=== PATIENT | female | born 1965 | race Caucasian/White ===

== ENCOUNTER 2017-09-22 15:12 | Inpatient (IN) | payer OTHER, MEDICAID ==
[~2017-09-22] VITALS: Ht 154.9 cm; Wt 85.3 kg
[2017-09-22 16:41] LABS: BASOPHIL % 0.4 % (0-2); PLATELET COUNT 331 x10^3mcL (130-400); RED CELL DISTRIBUTION WIDTH 14.2 % (11.5-14.5)
[2017-09-22 16:57] LABS: CALCIUM 8.9 mg/dL (8.5-10.1); CARBON DIOXIDE 22.5 mmol/L (21-32); CHLORIDE SERUM 100 mmol/L (98-107); CREATININE SERUM 0.9 mg/dL (0.6-1.0); GFR1 > 60 mL/min; GLUCOSE SERUM 344 mg/dL (74-106); POTASSIUM SERUM 4.8 mmol/L (3.5-5.1); SODIUM SERUM 136 mmol/L (136-145)
[2017-09-22 17:01] LABS: ALKALINE PHOSPHATASE 140 U/L (46-116); ALT/SGPT 23 U/L (14-59); AST/SGOT 27 U/L (15-37); BILIRUBIN TOTAL 0.29 mg/dL (0.20-1.00); TOTAL PROTEIN, SERUM 7.8 g/dL (6.4-8.2); URIC ACID 6.4 mg/dL (2.6-6.0)
[2017-09-22 18:10] LABS: microscopic required? YES; urine erythrocyte NEGATIVE (NEGATIVE)
[2017-09-22] MEDS ORDERED: NORCO1 TA2 PO (20:27)
[2017-09-22] MEDS ORDERED: FOSAMAX70 M1 PO (20:27)
[2017-09-22] MEDS ORDERED: LIPI10 PO (20:28)
[2017-09-22] MEDS ORDERED: AMITRIPTYLINE150 MG PO (20:28)
[2017-09-22] MEDS ORDERED: NOR10 PO (20:28)
[2017-09-22] MEDS ORDERED: BACLOFEN10 MG PO (20:28)
[2017-09-22] MEDS ORDERED: CEL100 PO (20:29)
[2017-09-22] MEDS ORDERED: BENAZEPRIL HYDR20 M1 PO (20:29)
[2017-09-22 20:36] LABS: AMPHETAMINE QUAL UR NONE DETECTED (NEG <=1000)
[2017-09-22 20:43] LABS: PHOSPHOROUS 4.7 mg/dL (2.5-4.9)
[2017-09-22 20:44] LABS: CHOLESTEROL/HDL RATIO 6.6
[2017-09-22 20:50] LABS: T3 TOTAL 0.81 ng/mL
[2017-09-22 20:55] LABS: FREE T4 0.83 ng/dL (0.76-1.46); FREE THYROXINE INDEX 2.3 ug/dL (1.4-4.5); T4(THYROXINE) 7.4 ug/dL (4.7-13.3)
[2017-09-22 21:14] VITALS: BP 138/65
[2017-09-22 21:24] VITALS: Ht 154.9 cm; Wt 85.3 kg
[2017-09-23 05:21] VITALS: BP 134/83
[2017-09-23] MEDS ORDERED: GLUCOTROL10 MG PO (06:25)
[2017-09-23 06:26] LABS: CALCIUM 8.3 mg/dL (8.5-10.1); CARBON DIOXIDE 24.4 mmol/L (21-32); CHLORIDE SERUM 106 mmol/L (98-107); CREATININE SERUM 0.7 mg/dL (0.6-1.0); GFR1 > 60 mL/min; GLUCOSE SERUM 366 mg/dL (74-106); POTASSIUM SERUM 4.8 mmol/L (3.5-5.1); SODIUM SERUM 134 mmol/L (136-145)
[2017-09-23] MEDS ORDERED: METFORMIN850 M1 PO (06:27)
[2017-09-23] MEDS ORDERED: PREDNISONE20 MG PO (06:29)
[2017-09-23 07:40] LABS: CHOLESTEROL/HDL RATIO 6.5
[2017-09-23 09:32] VITALS: BP 122/67
[2017-09-23 10:43] LABS: BASOPHIL % 0.1 % (0-2); PLATELET COUNT 273 x10^3mcL (130-400); RED CELL DISTRIBUTION WIDTH 14.4 % (11.5-14.5)
[2017-09-23 12:44] VITALS: BP 107/63
[2017-09-23 17:50] VITALS: BP 142/64
[2017-09-23 20:35] VITALS: BP 137/47
[2017-09-24 03:24] VITALS: BP 116/63
[2017-09-24 05:59] VITALS: BP 120/57
[2017-09-24 06:46] LABS: BASOPHIL % 0.6 % (0-2); PLATELET COUNT 235 x10^3mcL (130-400); RED CELL DISTRIBUTION WIDTH 13.9 % (11.5-14.5)
[2017-09-24 06:53] LABS: CARBON DIOXIDE 22.5 mmol/L (21-32); CHLORIDE SERUM 109 mmol/L (98-107); CREATININE SERUM 0.5 mg/dL (0.6-1.0); GFR1 > 60 mL/min; GLUCOSE SERUM 164 mg/dL (74-106); MAGNESIUM 1.8 mg/dL (1.8-2.4); PHOSPHOROUS 3.1 mg/dL (2.5-4.9); POTASSIUM SERUM 4.2 mmol/L (3.5-5.1); SODIUM SERUM 141 mmol/L (136-145); URIC ACID 5.5 mg/dL (2.6-6.0)
[2017-09-24 10:51] VITALS: BP 146/62
[2017-09-24 14:18] VITALS: BP 140/60
[2017-09-24 18:46] VITALS: BP 118/61
[2017-09-24 21:58] VITALS: BP 159/120
[2017-09-25 05:26] VITALS: BP 155/71
[2017-09-25 06:35] LABS: CALCIUM 8.3 mg/dL (8.5-10.1); CARBON DIOXIDE 25.7 mmol/L (21-32); CHLORIDE SERUM 103 mmol/L (98-107); CREATININE SERUM 0.6 mg/dL (0.6-1.0); GFR1 > 60 mL/min; GLUCOSE SERUM 200 mg/dL (74-106); MAGNESIUM 1.6 mg/dL (1.8-2.4); PHOSPHOROUS 3.3 mg/dL (2.5-4.9); POTASSIUM SERUM 3.8 mmol/L (3.5-5.1); SODIUM SERUM 137 mmol/L (136-145)
[2017-09-25 06:44] LABS: BASOPHIL % 0.5 % (0-2); PLATELET COUNT 210 x10^3mcL (130-400); RED CELL DISTRIBUTION WIDTH 13.9 % (11.5-14.5)
[2017-09-25 09:29] VITALS: BP 155/76
[2017-09-25 17:23] VITALS: BP 98/54
[2017-09-25 20:24] VITALS: BP 100/46
[2017-09-25 21:30] VITALS: BP 115/48
[2017-09-26 05:29] VITALS: BP 110/48
[2017-09-26 06:37] LABS: BASOPHIL % 0.2 % (0-2); PLATELET COUNT 250 x10^3mcL (130-400); RED CELL DISTRIBUTION WIDTH 14.5 % (11.5-14.5)
[2017-09-26 06:55] LABS: CALCIUM 8.6 mg/dL (8.5-10.1); CARBON DIOXIDE 24.5 mmol/L (21-32); CHLORIDE SERUM 102 mmol/L (98-107); CREATININE SERUM 0.7 mg/dL (0.6-1.0); GFR1 > 60 mL/min; GLUCOSE SERUM 311 mg/dL (74-106); MAGNESIUM 2.3 mg/dL (1.8-2.4); PHOSPHOROUS 4.7 mg/dL (2.5-4.9); POTASSIUM SERUM 4.4 mmol/L (3.5-5.1); SODIUM SERUM 136 mmol/L (136-145)
[2017-09-26 09:24] VITALS: BP 145/60
[2017-09-26] MEDS ORDERED: GENTAMICIN IV (11:53)
[2017-09-26] MEDS ORDERED: ROB750 PO (11:55)
[2017-09-26] MEDS ORDERED: LYRICA50 M1 PO (11:56)
[2017-09-26 12:19] VITALS: BP 145/60
== END 2017-09-26 17:02 | DRG 551 ==
LOC: ED 15:12 → MU 20:12 → DU 20:12 → MU 09-23 21:32
PROVIDERS: Emergency Medicine; Family Medicine
PROC: 7W01X1Z Osteopathic Treatment of Cervical Region using Fascial Release (ICD-10-PCS; principal; 2017-09-23)
PROC: 7W0 Osteopathic, Anatomical Regions, Treatment (ICD-10-PCS; 2017-09-23)
PROC: 7W04X1Z Osteopathic Treatment of Sacrum using Fascial Release (ICD-10-PCS; 2017-09-23)
PROC: 7W0 Osteopathic, Anatomical Regions, Treatment (ICD-10-PCS; 2017-09-23)
PROC: 7W05X1Z Osteopathic Treatment of Pelvis using Fascial Release (ICD-10-PCS; 2017-09-23)
PROC: 7W03X1Z Osteopathic Treatment of Lumbar Region using Fascial Release (ICD-10-PCS; 2017-09-23)
PROC: 7W06X1Z Osteopathic Treatment of Lower Extremities using Fascial Release (ICD-10-PCS; 2017-09-23)
PROC: 7W00X1Z Osteopathic Treatment of Head using Fascial Release (ICD-10-PCS; 2017-09-23)
DX: M54.41 Lumbago with sciatica, right side (principal); N17.0 Acute kidney failure with tubular necrosis; J98.11 Atelectasis; E44.0 Moderate protein-calorie malnutrition; N12 Tubulo-interstitial nephritis, not specified as acute or chronic; G35 Multiple sclerosis; E11.65 Type 2 diabetes mellitus with hyperglycemia; I16.0 Hypertensive urgency; B96.29 Other Escherichia coli [E. coli] as the cause of diseases classified elsewhere; Z60.2 Problems related to living alone; E78.5 Hyperlipidemia, unspecified; Z16.24 Resistance to multiple antibiotics; Z79.84 Long term (current) use of oral hypoglycemic drugs; M99.01 Segmental and somatic dysfunction of cervical region; M99.00 Segmental and somatic dysfunction of head region; M99.06 Segmental and somatic dysfunction of lower extremity; M99.03 Segmental and somatic dysfunction of lumbar region; M99.05 Segmental and somatic dysfunction of pelvic region; M99.08 Segmental and somatic dysfunction of rib cage; M99.04 Segmental and somatic dysfunction of sacral region; M99.07 Segmental and somatic dysfunction of upper extremity; E66.9 Obesity, unspecified; Z68.37 Body mass index [BMI] 37.0-37.9, adult
CPT/HCPCS: 82962; 83880; 84439; 94150; 97110-GP; 97116-GP; 97530-GP; 97535-GP; J0696; J1100; J1200; J1580; J1815; J1885; J1956; J2270; J2405; J2800; J2930; J3475; J7030; J7040; J7512; Q0092